=== PATIENT | female | born 1955 | race Caucasian/White ===

== ENCOUNTER 2017-11-30 07:46 | Day surgery (SDC) | payer OTHER ==
[2017-11-30] MEDS ORDERED: PROPOFOL 200 MG/20 ML VIAL IV ONE (08:00)
[2017-11-30] MEDS ORDERED: LACTATED RINGERS 1,000 ML IV.SOLN IV ONE (08:00)
[2017-11-30] MEDS ORDERED: SALINE FLUSH 10 ML DISP.SYRIN IVF ONE (08:00)
--- NOTE | 2017-12-01 10:27 | GI Report ---
REFERRING PHYSICIAN: Dr. Jose Peña DATA ENTRY ANALYST: Jorge Mckenna MD PROCEDURE MEDICATION: Propofol as per anesthesia. INDICATIONS: This is a 62-year-old woman with a strong family history of colorectal cancer. She is referred for an evaluation. She denies any change in her stools. She is on lisinopril and a statin. She does have central obesity. PROCEDURE PERFORMED: Colonoscopy with polypectomy. PROCEDURE: An Olympus video colonoscope was advanced into the rectum. 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 Prep was fair. In the sigmoid colon at around 40 cm, there was a 3 mm flat polyp removed with a cold snare. The colonoscope was slowly advanced all the way to the cecum. The appendiceal orifice and ileocecal valve were normal. On slow withdrawal, the cecum, ascending colon, and transverse colon with melanosis coli and no obvious intraluminal lesions noted. The descending colon and sigmoid with a few small diverticula, melanosis coli, and the polyp removed at 35 to 40 cm. Retroflexion of the rectum was normal. Patient tolerated the procedure well. FINDINGS: 1. Polyp in the sigmoid removed. 2. Melanosis coli. RECOMMENDATIONS: 1. Discontinue laxatives. 2. She could add MiraLAX daily. 3. She could add a fiber supplement like Benefiber or Metamucil daily. 4. I recommend she cut back on white carbohydrates. 5. Increase natural fiber in her diet. 6. Increase fluid intake. 7. Consider re-looking at her colon in 5 years pending the pathology of the polyp. cc: Dr. Jose Peña [facility] SYSTEM[facility]
== END 2017-11-30 07:47 ==
LOC: OPSURG 07:46
PROVIDERS: ATTEND Internal Medicine Gastroenterology
DX: Z12.11 Encounter for screening for malignant neoplasm of colon (principal); K51.40 Inflammatory polyps of colon without complications; K63.89 Other specified diseases of intestine
CPT/HCPCS: J2704; J7120; 45385; S1016

== ENCOUNTER 2019-02-07 15:04 | Outpatient (CLI) | payer OTHER ==
--- NOTE | 2019-02-07 16:28 | Diagnostic Imaging Report ---
FILIBERTO MCDUFFIE [facility] [id number] [facility] [address] [address] Report Submission Date: Feb 07, 2019 3:48:33 PM CDT Patient Study Name: ROSALVA MCPHERSON Date: Feb 07, 2019 3:17:40 PM CDT Modality Type: US Gender: F Description: US EXTREMITY VEINS UNILAT : 59 Institution: [facility] Physician: FILIBERTO MCUDFFIE Examination: Ultrasound left vein History: Leg discomfort Findings: Sonographic evaluation of the left lower extremity venous system from the groin to the popliteal fossa inclusive. Normal compressibility. No luminal filling defect. Normal waveforms and response to augmentation. No popliteal region fluid collection. Impression: No evidence for deep venous thrombosis. Electronically signed on Feb 07, 2019 3:48:33 PM CDT by: Omid VALDEZ
--- NOTE | 2019-02-07 16:59 | Diagnostic Imaging Report ---
FILIBERTO MCDUFFIE [facility] [address] [facility] [address] [address] Report Submission Date: Feb 07, 2019 3:48:33 PM CDT Patient Study Name: ROSALVA MCPHERSON Date: Feb 07, 2019 3:17:40 PM CDT Modality Type: US Gender: F Description: US EXTREMITY VEINS UNILAT : 59 Institution: [facility] Physician: FILIBERTO MCDUFFIE Examination: Ultrasound left vein History: Leg discomfort Findings: Sonographic evaluation of the left lower extremity venous system from the groin to the popliteal fossa inclusive. Normal compressibility. No luminal filling defect. Normal waveforms and response to augmentation. No popliteal region fluid collection. Impression: No evidence for deep venous thrombosis. Electronically signed on Feb 07, 2019 3:48:33 PM CDT by: Omid VALDEZ
== END 2019-02-07 15:10 ==
LOC: RAD 15:04
PROVIDERS: ATTEND Family Medicine
DX: M25.862 Other specified joint disorders, left knee (principal); M79.605 Pain in left leg
CPT/HCPCS: 93971